=== PATIENT | male | born 1975 | race Two or more races ===

== ENCOUNTER 2024-02-24 15:35 | Emergency (ER) | payer OTHER ==
[~2024-02-24] VITALS: Ht 182.9 cm; Wt 77.6 kg
[2024-02-24] MEDS ORDERED: TETANUS & DIPHTHERIA TOX,ADULT 0.5 ML VIAL IM STA (21:51)
[2024-02-24] MEDS ORDERED: CEFAZOLIN SODIUM 1,000 MG VIAL IM STA (21:51)
[2024-02-24] MEDS ORDERED: CEFAZOLIN SODIUM 1,000 MG VIAL ONE (22:00)
[2024-02-24] MEDS ORDERED: TETANUS DIPHTHERIA TOX. ADSOR 5 ML VIAL IM ONE (22:01)
[2024-02-24] MEDS ORDERED: LIDOCAINE HCL 1% 10ML VIAL ONE (22:01)
== END 2024-02-24 22:31 | disposition home or self-care (01) ==
LOC: ER 15:36
DX: S01.02XA Laceration with foreign body of scalp, initial encounter (principal); W21.4XXA Striking against diving board, initial encounter; Y93.89 Activity, other specified; Y92.89 Other specified places as the place of occurrence of the external cause
CPT/HCPCS: 12001; 96372; 99282; J0690